=== PATIENT | male | born 2000 | race Caucasian/White ===

== ENCOUNTER 2021-03-19 19:48 | Emergency (ER) | payer OTHER ==
--- NOTE | 2021-03-19 19:58 | ED Physician Documentation ---
PD HPI CHEST PAIN - Stated complaint Stated Complaint: CP,SOA - Chief complaint Chief Complaint: Cardiac - History obtained from History obtained from: Patient - Additional information Additional information: 20-year-old man, previously healthy presents with substernal nonradiating sharp intermittent chest pain since yesterday. It is worse with deep breathing, not improved with ibuprofen. Patient denies cough, fever, shortness of breath, traumatic injury of any kind. PERC negative. Review of Systems Ten Systems: 10 systems reviewed and negative Constitutional: denies: Fever, Chills Cardiac: reports: Chest pain / pressure, Palpitations Respiratory: denies: Dyspnea, Cough GI: denies: Nausea PD PAST MEDICAL HISTORY - Allergies Allergies/Adverse Reactions: Allergies Allergy/AdvReac Type Severity Reaction Status Date / Time No Known Drug Allergies Allergy Verified 03/19/21 19:51 PD ED PE NORMAL - Vitals Vital signs reviewed: Yes - General General: Alert and oriented X 3, No acute distress, Well developed/nourished - HEENT HEENT: Atraumatic, PERRL, EOMI - Neck Neck: Supple, no meningeal sign - Cardiac Cardiac: RRR - Respiratory Respiratory: No respiratory distress, Clear bilaterally - Abdomen Abdomen: Non tender, Non distended - Derm Derm: Normal color, Warm and dry - Extremities Extremities: No deformity - Neuro Neuro: Alert and oriented X 3 - Psych Psych: Normal mood, Normal affect Results - Vitals Vitals: Vital Signs - 24 hr 03/19/21 03/19/21 19:51 20:03 Temperature 36.5 C 36.5 C Heart Rate 92 96 Respiratory 16 16 Rate Blood Pressure 150/90 H 150/90 H O2 Saturation 98 98 Oxygen O2 Source Room air - EKG (time done) 1947 Rate: Rate (enter#) (92) Rhythm: NSR [place]: Normal Intervals: Other (OK 109) QRS: Normal Ischemia: Normal ST segments Computer interpretation: Agree with computer - Labs Labs: Laboratory Tests 03/19/21 03/19/21 20:06 20:06 WBC 6.3 RBC 5.66 Hgb 17.4 Hct 48.8 MCV 86.2 MCH 30.7 MCHC 35.7 RDW 11.7 L Plt Count 208 MPV 9.6 Neut # (Auto) 3.5 Lymph # (Auto) 2.1 [place] # (Auto) 0.6 Eos # (Auto) 0.1 Baso # (Auto) 0.0 Absolute Nucleated RBC 0.00 Nucleated RBC % 0.0 Sodium 140 Potassium 3.8 Chloride 104 Carbon Dioxide 26 Anion Gap 10.0 BUN 15 Creatinine 1.0 Estimated GFR (MDRD) 95 Glucose 113 H Calcium 9.5 Total Bilirubin 0.9 AST 20 ALT 16 Alkaline Phosphatase 54 Total Protein 7.6 Albumin 4.8 Globulin 2.8 Albumin/Globulin Ratio 1.7 Lipase 31 PD MEDICAL DECISION MAKING - ED course ED course: 20-year-old man presents with atypical chest pain. Heart score 0. PERC negative. Return precautions given. Patient will follow up with [facility]. Departure - Departure Disposition: 01 Home, Self Care Clinical Impression: Chest pain Condition: Good Instructions: ED Chest Pain NonCardiac Comments: You were seen in the emergency department for evaluation of chest pain. Your vital signs, physical exam, blood work, chest x-ray, and EKG showed no emergent cause for your symptoms. It is likely a muscle strain. You can take ibuprofen 600 mg every 6 hours as needed for pain. Your EKG did show a short OK interval of 109 (normal range 120-200), which is an incidental finding that does not significantly impact your symptoms. You can have a repeat EKG done with your [facility] medical doctor routinely. Please return to the emergency department if you have any new or worsening symptoms or other concerns.
[2021-03-19 20:11] LABS: BASOPHILS % (AUTO) 0.5 %; EOSINOPHILS # (AUTO) 0.1 10^3/uL (0.0-0.7); EOSINOPHILS % (AUTO) 1.7 %; HCT - HEMATOCRIT 48.8 % (42.0-52.0); HGB - HEMOGLOBIN 17.4 g/dL (14.0-18.0); LYMPHOCYTES # (AUTO) 2.1 10^3/uL (1.5-3.5); LYMPHOCYTES % (AUTO) 33.5 %; MEAN CORPUSCULAR HEMOGLOBIN 30.7 pg (27.0-31.0); MEAN CORPUSCULAR HGB CONC 35.7 g/dL (32.0-36.0); MEAN CORPUSCULAR VOLUME 86.2 fL (80.0-94.0); MEAN PLATELET VOLUME 9.6 fL (7.4-11.4); MONOCYTES # (AUTO) 0.6 10^3/uL (0.0-1.0); MONOCYTES % (AUTO) 9.1 %; NEUTROPHILS # (AUTO) 3.5 10^3/uL (1.5-6.6); PLT - PLATELET COUNT 208 10^3/uL (130-450); RED BLOOD COUNT 5.66 10^6/uL (4.70-6.10); RED CELL DISTRIBUTION WIDTH 11.7 % (12.0-15.0); WHITE BLOOD COUNT 6.3 x10^3/uL (4.8-10.8)
--- NOTE | 2021-03-19 20:26 | XRAY Report ---
PROCEDURE: Chest 1 View X-Ray INDICATIONS: Chest pain TECHNIQUE: One view of the chest was acquired. COMPARISON: None FINDINGS: Surgical changes and devices: None. Lungs and pleura: No pleural effusions or pneumothorax. Lungs are clear. Mediastinum: Mediastinal contours appear normal. Heart size is normal. Bones and chest wall: No suspicious bony lesions. Overlying soft tissues appear unremarkable. IMPRESSION: No acute cardiopulmonary abnormality. Reviewed by: Jan Valdez on 03/19/2021 8:24 PM PDT Approved by: Jan Valdez on 03/19/2021 8:24 PM PDT Station ID: [id number]
[2021-03-19 20:30] LABS: ALBUMIN 4.8 g/dL (3.2-5.5); ALBUMIN/GLOBULIN RATIO 1.7 (1.0-2.2); BILIRUBIN,TOTAL 0.9 mg/dL (0.2-1.0); CALCIUM 9.5 mg/dL (8.5-10.3); POTASSIUM 3.8 mmol/L (3.5-5.0); TOTAL PROTEIN 7.6 g/dL (6.7-8.2)
[2021-03-19 20:50] VITALS: BP 125/77
== END 2021-03-19 20:49 | disposition home or self-care (01) ==
LOC: ED 19:48
DX: R07.89 Other chest pain (principal)
CPT/HCPCS: 36415; 80053; 83690; 84484; 85025; 93005; 99284

== ENCOUNTER 2021-05-28 16:30 | Emergency (ER) | payer OTHER ==
[2021-05-28 16:48] VITALS: BP 130/75
[2021-05-28 17:08] LABS: RAPID STREP SCREEN Negative (Negative)
[2021-05-28] MEDS ORDERED: CHERRY SYRUP 10 ML UDC PO ONE (18:34)
[2021-05-28] MEDS ORDERED: DEXAMETHASONE 10 MG/ML VIAL PO STA (18:34)
--- NOTE | 2021-05-28 18:37 | ED Physician Documentation ---
History of Present Illness - Stated complaint Stated Complaint: SORE THROAT - Chief complaint Chief Complaint: Heent - Additonal information Additional information: 20-year-old male presents emergency department for evaluation of generalized sore throat that began about 3 days ago. No cough or fevers. No congestion. No tonsillar exudate. He is vaccinated for COVID-19 with a J&J vaccine. Reports a history of a peritonsillar abscess a little more than a year ago and is concerned this could be similar. He has no dysphonia or difficulty turning his neck. He swallows normally. Review of Systems Constitutional: denies: Fever, Chills Ears: reports: Reviewed and negative Nose: denies: Rhinorrhea / runny nose, Congestion Throat: reports: Sore throat. denies: Oral lesions / sores, Swollen tonsils, Swallowed foreign body Cardiac: reports: Reviewed and negative Respiratory: reports: Reviewed and negative GI: reports: Reviewed and negative : reports: Reviewed and negative PD PAST MEDICAL HISTORY - Past Medical History Past Medical History: Yes - Past Surgical History Past Surgical History: Yes - Present Medications Home Medications: Ambulatory Orders Medication Instructions Recorded Confirmed No Known Home Medications 05/28/21 05/28/21 - Allergies Allergies/Adverse Reactions: Allergies Allergy/AdvReac Type Severity Reaction Status Date / Time No Known Drug Allergies Allergy Verified 05/28/21 16:48 - Social History Does the pt smoke?: No Smoking Status: Never smoker Does the pt drink ETOH?: No Does the pt have substance abuse?: No - Immunizations Immunizations are current?: Yes PD ED PE EXPANDED - General General: Alert, No acute distress, Well developed/nourished - HEENT HEENT: PERRL, EOMI, Moist mucous membranes, Pharynx normal (No soft palate swelling or asymmetry.), Pharyngeal erythema, Dentition normal. No: Swollen tonsils, Tonsillar exudate, [employer] Results - Vitals Vitals: Vital Signs - 24 hr 05/28/21 16:44 Temperature 36.5 C Heart Rate 65 Respiratory 16 Rate Blood Pressure 130/75 O2 Saturation 99 Oxygen O2 Source Room air - Labs Labs: Laboratory Tests 05/28/21 16:50 Group A Strep Rapid Negative PD MEDICAL DECISION MAKING - ED course Complexity details: reviewed results, re-evaluated patient, considered differential, d/w patient ED course: 20-year-old male presents emergency department for evaluation of 3 days generalized sore throat. Rapid strep is negative. On exam he has normal phonation. No tonsillar swelling, tonsillar exudate or soft palate swelling or asymmetry. No findings to suggest acute peritonsillar abscess at this time. His rapid strep is negative. Will defer antibiotics unless culture is positive. Patient is given Decadron here in the emergency department. Given his history of a peritonsillar abscess though we did discuss emergent return precautions for failure of symptoms to resolve or acutely worsen. Departure - Departure Disposition: 01 Home, Self Care Clinical Impression: Pharyngitis Qualifiers: Pharyngitis/tonsillitis etiology: unspecified etiology Qualified Code(s): J02.9 - Acute pharyngitis, unspecified Condition: Stable Record reviewed to determine appropriate education?: Yes Instructions: ED Pharyngitis Strep Poss Ch Comments: Reji you were seen in the emergency department today for sore throat. Your rapid strep is negative. We will defer giving antibiotics unless your culture is positive. You did report concerns that this could be a peritonsillar abscess as you have had one in the past. However as we discussed at the bedside on exam you do not have any findings to suggest a peritonsillar abscess. You were given some Decadron which is a steroid here in the emergency department which I expect will help with your sore throat over the next 12 to 72 hours. I recommend you gargle with warm salt water 3 times a day. If at any point you feel that you are having worsening symptoms, develop any fever, cannot swallow normally or turn your neck, or find that you have swelling in the back of your throat and you are to return immediately to the ER for a second evaluation
== END 2021-05-28 18:42 | disposition home or self-care (01) ==
LOC: ED 16:30
DX: J02.9 Acute pharyngitis, unspecified (principal)
CPT/HCPCS: 87070; 87430; 99282; 99283; A9270